=== PATIENT | female | born 1930 | race Caucasian/White ===

== ENCOUNTER → 2016-06-24 | Outpatient (REF) | payer MEDICARE | LOC: M LAB REF 16:25 | PROVIDERS: ATTEND Nurse Practitioner Family | DX: D64.9 Anemia, unspecified (principal) ==

== ENCOUNTER 2016-07-15 06:13 | Emergency (ER) | payer MEDICARE ==
[~2016-07-15] VITALS: Ht 152.4 cm; Wt 37.2 kg
[2016-07-15 07:06] LABS: BASO % 0.4 % (0.0-1.0); EOS # 2.6 K/mm3 (0.0-0.50); EOS % 32.4 % (0.0-3.0); LARGE UNSTAINED CELL # 0.2 K/mm3 (0.0-0.4); LARGE UNSTAINED CELL % 2.3 % (0.0-4.0); LYMPH # 1.8 K/mm3 (1.5-4.5); LYMPH % 20.5 % (24.0-44.0); MEAN CORPUSCULAR HEMOGLOBIN 31.7 pg (27.0-33.0); MEAN CORPUSCULAR HGB CONC 32.7 g/dl (32.0-36.5); MONO # 0.4 K/mm3 (0.0-0.8); MONO % 4.7 % (0.0-5.0); NEUTROPHILS # 3.2 K/mm3 (1.8-7.7); NEUTROPHILS % 39.7 % (36.0-66.0); PLATELET COUNT, AUTOMATED 268 k/mm3 (150-450); RED CELL DISTRIBUTION WIDTH 12.4 % (11.5-14.5)
[2016-07-15 07:16] LABS: VENOUS BASE EXCESS 4.5 (-2.0-2.0); VENOUS O2 SATURATION 82.9 % (60.0-80.0); VENOUS PARTIAL PRESSURE CO2 52.2 mmHg (38.0-50.0); VENOUS PARTIAL PRESSURE O2 44.9 mmHg (30.0-50.0); VENOUS STANDARD HCO3 28.2 MEQ/L; VENOUS TOTAL CO2 32.2 MEQ/L (24.0-28.0)
[2016-07-15 07:36] LABS: ANION GAP 8 MEQ/L (8-16); BLOOD UREA NITROGEN 12 MG/DL (7-18); CALCIUM LEVEL 8.8 MG/DL (8.8-10.2); CARBON DIOXIDE LEVEL 30 MEQ/L (21-32); CHLORIDE LEVEL 101 MEQ/L (98-107); CREATININE FOR GFR 0.66 MG/DL (0.55-1.02); GLOMERULAR FILTRATION RATE > 60.0 (>32); GLUCOSE, FASTING 92 MG/DL (83-110); POTASSIUM SERUM 4.4 MEQ/L (3.5-5.1); SODIUM LEVEL 139 MEQ/L (136-145)
[2016-07-15] MEDS ORDERED: PROA1AER (08:11)
[2016-07-15] MEDS ORDERED: FLUT1SPR2 (08:11)
[2016-07-15] MEDS ORDERED: ARNU1INH (08:11)
[2016-07-15] MEDS ORDERED: PARO5TAB PO (08:11)
[2016-07-15] MEDS ORDERED: ALBU83IN PO (08:11)
[2016-07-15] MEDS ORDERED: MONT10TA2 PO (08:11)
--- NOTE | 2016-07-15 08:13 | REP ---
Chest x-ray: Three views. History: Dyspnea. Comparison study: December 24, 2015. Findings: The lungs are markedly hyperinflated consistent with COPD as before. The patient is extremely thin. The heart is not enlarged. EKG monitoring electrodes overlie the chest. There is diffuse osteopenia. No other significant bony abnormality. Impression: Evidence of COPD. No acute infiltrate. No active disease visible radiographically. Signed by Jose L Walker MD 07/15/2016 01:55 P
--- NOTE | 2016-07-15 08:13 | REP ---
KUB: Single view. History: Lower abdominal pain. 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 Bowel gas pattern is normal. No mass, organomegaly or pathologic calcification is appreciated. Impression: Unremarkable KUB. Signed by Jose L Walker MD 07/15/2016 01:56 P
[2016-07-15] MEDS: IPRATROPIUM 0.5MG/ALBUTEROL 2.5MG INH SOL UD 3ML (DUONEB)(J7620) NEB ONE (08:21)
--- NOTE | 2016-07-15 09:03 | ECGEPIP ---
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
[2016-07-15] MEDS: GASTROGRAFIN SOLUTION 30ML PO ONE (09:04)
[2016-07-15] MEDS: GASTROGRAFIN SOLUTION 30ML (Q9963) PO ONE (09:04)
[2016-07-15] MEDS ORDERED: ISOVUE-370 76% 100ML VIAL (Q9967) As Ordered ONE (09:39)
[2016-07-15 10:33] VITALS: BP 131/74
== END 2016-07-15 10:45 | disposition home or self-care (01) ==
LOC: EDBD 06:13 → M ED 09:55
DX: R30.0 Dysuria (principal); K57.92 Diverticulitis of intestine, part unspecified, without perforation or abscess without bleeding; J44.9 Chronic obstructive pulmonary disease, unspecified
CPT/HCPCS: 36415; 71020; 74000; 80048; 81001; 82550; 82553; 82803; 83880; 84484; 85025; 87086; 93005; 94640; 99284; Q9963

== ENCOUNTER → 2017-12-04 | Outpatient (REF) | payer MEDICARE | LOC: M WUC 12-05 09:14 | DX: S39.012A Strain of muscle, fascia and tendon of lower back, initial encounter (principal); X58.XXXA Exposure to other specified factors, initial encounter; Y92.89 Other specified places as the place of occurrence of the external cause | CPT/HCPCS: 87086 ==